=== PATIENT | female | born 1995 | race Hispanic/Latino ===

== ENCOUNTER 2019-10-07 05:14 | Inpatient (IN) | payer MEDICAID ==
[~2019-10-07] VITALS: Ht 154.9 cm; Wt 96.6 kg
[2019-10-07] MEDS ORDERED: CEFAZOLIN SODIUM 1 GM VIAL IVP PRN (05:15)
[2019-10-07] MEDS ORDERED: LACTATED RINGERS 1000ML 1,000 ML IV SCH ×2 (05:15)
[2019-10-07 05:57] VITALS: BP 115/64
[2019-10-07 06:00] LABS: HEMATOCRIT 39.8 % (36-48); MEAN CORPUSCULAR HEMOGLOBIN 28.5 pg (27.0-33.0); MEAN CORPUSCULAR HGB CONC 32.9 g/dL (32.0-36.0); MEAN CORPUSCULAR VOLUME 86.5 fL (79-99); RED BLOOD CELL COUNT(AUTO) 4.6 MIL/uL (4.00-5.50); RED CELL DISTRIBUTION WIDTH 14.5 % (11.0-15.5); WHITE BLOOD COUNT (AUTO) 9.3 K/uL (4.8-10.8)
[2019-10-07] MEDS ORDERED: CALDOLOR 800MG+NS 250ML 250 ML IV ONE ×2 (07:18→15:24)
[2019-10-07] MEDS ORDERED: PHENYLEPHRINE HCL 10 MG/ML 1ML VIAL IV ONE (07:21)
[2019-10-07] MEDS ORDERED: DEXAMETHASONE SOD PHOSPHATE 10MG/ML 1ML VIAL ONE (07:21)
[2019-10-07] MEDS ORDERED: OXYTOCIN 10 USP UNITS/ML ONE (07:22)
[2019-10-07] MEDS ORDERED: ONDANSETRON HCL 4 MG/2 ML VIAL ONE (07:22)
[2019-10-07] MEDS ORDERED: DURAMORPH PF1 MG/ML 10ML AMP IV ONE (07:23)
[2019-10-07] MEDS ORDERED: EPHEDRINE SULFATE 50 MG/ML AMPULE ONE (07:23)
[2019-10-07] MEDS ORDERED: CEFAZOLIN SODIUM 500 MG VIAL IV ONE (07:52)
[2019-10-07] MEDS ORDERED: SODIUM CHLORIDE 0.9% 10 ML VIAL IVP PRN (08:45)
[2019-10-07] MEDS ORDERED: DEXTROSE 5 %-0.45 % NACL 1,000 ML IV PRN (08:45)
[2019-10-07] MEDS ORDERED: PROMETHAZINE HCL 25 MG/ML 1ML AMPULE IM PRN (08:45)
[2019-10-07] MEDS ORDERED: MEPERIDINE-PF 75 MG/ML SYG IM PRN (08:45)
[2019-10-07] MEDS ORDERED: OXYTOCIN-LR 20 UNITS/1000 ML 1,000 ML IV PRN (08:45)
[2019-10-07] MEDS ORDERED: EPHEDRINE SULFATE 50 MG/ML AMPULE IVP PRN (10:30)
[2019-10-07] MEDS ORDERED: ONDANSETRON HCL 4 MG/2 ML VIAL IVP PRN (10:30)
[2019-10-07] MEDS ORDERED: DiphenhydrAMINE HCL 50 MG/ML VIAL IVP PRN (10:30)
[2019-10-07] MEDS ORDERED: NALOXONE HCL 0.4 MG/1 ML ML IVP PRN (10:30)
[2019-10-07 12:00] VITALS: BP 116/57
[2019-10-07] MEDS ORDERED: MEPERIDINE-PF 50 MG/ML SYG ONE (12:16)
[2019-10-07] MEDS ORDERED: MEPERIDINE-PF 25 MG/ML SYG ONE (12:16)
[2019-10-07 16:13] VITALS: BP 116/59
[2019-10-07] MEDS ORDERED: CALDOLOR 800MG+NS 250ML 250 ML IV SCH (16:45)
[2019-10-07 19:35] VITALS: BP 113/53
[2019-10-07] MEDS ORDERED: PREN1COM14 PO (22:24)
[2019-10-07 23:45] VITALS: BP 103/56
[2019-10-08 03:29] VITALS: BP 110/54
[2019-10-08 07:03] LABS: HEMATOCRIT 37.4 % (36-48); MEAN CORPUSCULAR HEMOGLOBIN 28.2 pg (27.0-33.0); MEAN CORPUSCULAR HGB CONC 32.1 g/dL (32.0-36.0); RED BLOOD CELL COUNT(AUTO) 4.25 MIL/uL (4.00-5.50); RED CELL DISTRIBUTION WIDTH 14.7 % (11.0-15.5); WHITE BLOOD COUNT (AUTO) 12.8 K/uL (4.8-10.8)
[2019-10-08 07:19] VITALS: BP 98/55
--- NOTE | 2019-10-08 07:52 | NUR ---
[place] Catheter taken out; Dressing taken out with small bloody drainage incision intact. Abdominal binder applied.
[2019-10-08 08:11] LABS: HEPATITIS Bs ANTIGEN SCREEN P Negative (Negative)
[2019-10-08] MEDS: IBUPROFEN 800 MG TAB PO SCH ×2 (08:39→16:53)
[2019-10-08] MEDS ORDERED: DIPH,PERTUSS(ACELL),TET VAC/PF 0.5 ML VIAL IM SCH (08:45)
[2019-10-08] MEDS ORDERED: BISACODYL 10 MG SUPP.RECT RC PRN (08:45)
[2019-10-08] MEDS ORDERED: ACETAMINOPHEN-CODEINE 300/30MG TAB PO PRN (08:45)
[2019-10-08] MEDS ORDERED: SIMETHICONE 80 MG TAB.CHEW PO PRN (08:45)
[2019-10-08] MEDS ORDERED: ACETAMINOPHEN EXTRA STRENGTH 500 MG TABLET PO PRN (08:45)
[2019-10-08] MEDS ORDERED: HYDROCODONE/ACETAMINOPHEN 5/325 MG TAB PO PRN (08:45)
[2019-10-08] MEDS ORDERED: DOCUSATE SODIUM 100 MG CAP PO SCH (09:00)
--- NOTE | 2019-10-08 11:05 | NUR ---
PATIENT AMBULATING IN HALLWAY, ACCOMPANIED BY SIGNIFICANT OTHER. NO COMPLAINTS OF PAIN OR DIZZINESS REPORTED.
--- NOTE | 2019-10-08 11:10 | NUR ---
SPOKE WITH DR. GONCALVES AND UPDATED ON PATIENT'S STATUS. PATIENT OKAY FOR DISCHARGE THIS AFTERNOON.
[2019-10-08 12:45] VITALS: BP 115/68
[2019-10-08 16:07] VITALS: BP 116/73
--- NOTE | 2019-10-08 20:15 | NUR ---
DISCHARGES HOME; Patient sent home via wheelchair with baby on her arms both are on stable condition. Ziggy Hsieh CNA accompanied and wheeled patient to ED exit. Patient out of the facility on their private car.
== END 2019-10-08 20:15 | disposition home or self-care (01) | DRG 540 ==
LOC: LDH 05:14 → WSH 10:58
PROVIDERS: ADMIT Obstetrics & Gynecology; ATTEND Obstetrics & Gynecology
PROC: 3E0234Z Introduction of Serum, Toxoid and Vaccine into Muscle, Percutaneous Approach (ICD-10-PCS; 2019-10-07)
PROC: 10D00Z1 Extraction of Products of Conception, Low, Open Approach (ICD-10-PCS; principal; 2019-10-07 07:30)
DX: O34.211 Maternal care for low transverse scar from previous cesarean delivery (principal); O99.214 Obesity complicating childbirth; E66.01 Morbid (severe) obesity due to excess calories; O99.52 Diseases of the respiratory system complicating childbirth; J45.909 Unspecified asthma, uncomplicated; Z23 Encounter for immunization; Z37.0 Single live birth; Z3A.39 39 weeks gestation of pregnancy
CPT/HCPCS: 36415; 59510; 85027; 86592; 86701; 86850; 86900; 86901; 87340; 87390; 90715; A4344; G0378; J0690; J1100; J1741; J2175; J2274; J2370; J2405; J2550; J2590; J3490; J7120